=== PATIENT | female | born 1990 ===

== ENCOUNTER 2022-02-26 20:45 | Emergency (ER) | payer OTHER ==
[~2022-02-26] VITALS: Ht 165.1 cm; Wt 56.7 kg
== END 2022-02-26 22:12 | disposition home or self-care (01) ==
LOC: ER 20:45
DX: S40.862A Insect bite (nonvenomous) of left upper arm, initial encounter (principal); W57.XXXA Bitten or stung by nonvenomous insect and other nonvenomous arthropods, initial encounter; Z88.1 Allergy status to other antibiotic agents
CPT/HCPCS: 99282; A9270